=== PATIENT | male | born 1985 | race Two or more races ===

== ENCOUNTER 2020-04-15 10:20 | Emergency (ER) | payer MEDICAID ==
[~2020-04-15] VITALS: Ht 175.3 cm; Wt 27.2 kg
[2020-04-15 11:00] VITALS: BP 148/92
[2020-04-15] MEDS ORDERED: TETRACAINE HCL 0.5% OPTH(EYE) SOLN 4ML LEFTEYE ONE (11:00)
[2020-04-15] MEDS ORDERED: FLUORESCEIN SOD OPTH TEST STRIP LEFTEYE ONE (11:00)
== END 2020-04-15 11:33 | disposition home or self-care (01) ==
LOC: ER 10:20
DX: S05.02XA Injury of conjunctiva and corneal abrasion without foreign body, left eye, initial encounter (principal); X58.XXXA Exposure to other specified factors, initial encounter; Y93.89 Activity, other specified; Y92.89 Other specified places as the place of occurrence of the external cause; Y99.8 Other external cause status